=== PATIENT | male | born 1990 | race Caucasian/White ===

== ENCOUNTER 2017-03-04 21:01 | Emergency (ER) | payer SELFPAY ==
[~2017-03-04] VITALS: Ht 182.9 cm; Wt 116.4 kg
[2017-03-04] VITALS (7 sets, daily range): BP systolic 124–159; BP diastolic 73–102; PULSE 84–92; RESP 18–20; TEMP 99.4; O2SAT 97–99
--- NOTE | 2017-03-04 21:24 | PD ---
HPI Chief Complaint: Injury Time Seen by Provider: 21:11 Travel History International Travel<30 days: No Contact w/Intl Traveler<30days: No Traveled to known affect area: No History of Present Illness HPI WHILE DANCING "WILDLY" FELT A POP AND PAIN TO RIGHT SHOULDER, SEVERE PAIN WITH ANY MOVEMENT, 01/25, DENIES LOC/DECKER/CP/ABD PAIN/NUMBNESS/COLD OR PALE EXTREMITY ALL: ROBITUSSIN THOUGH CAN''T RECALL WHAT THE REACTION IS PMHX: PREVIOUS SHOULDER DISLOCATION PSHX-NONE PFSH Past Medical History ADHD: Yes Diminished Hearing: No Immunizations Current: Yes Social History Alcohol Use: Yes (OCC) Tobacco Use: No Substance Use: Yes Allergies-Medications (Allergen,Severity, Reaction): Coded Allergies: guaifenesin (Unverified Allergy, Mild, 03/04/17) Reported Meds & Prescriptions Reported Meds & Active Scripts Active No Active Prescriptions or Reported Medications Review of Systems Except as stated in HPI: all other systems reviewed are Neg Musculoskeletal: Positive: Limited ROM, Pain Physical Exam Narrative GENERAL: SKIN: Warm and dry. HEAD: Atraumatic. Normocephalic. EYES: Pupils equal and round. No scleral icterus. No injection or drainage. ENT: No nasal bleeding or discharge. Mucous membranes pink and moist. NECK: Trachea midline. No JVD. CARDIOVASCULAR: Regular rate and rhythm. RESPIRATORY: No accessory muscle use. Clear to auscultation. Breath sounds equal bilaterally. GASTROINTESTINAL: Abdomen soft, non-tender, nondistended. Hepatic and splenic margins not palpable. MUSCULOSKELETAL: Extremities without clubbing, cyanosis, or edema. RIGHT GLENOHUMERAL obvious deformity. NEUROLOGICAL: Awake and alert. No obvious cranial nerve deficits. Motor grossly within normal limits. Five out of 5 muscle strength in the arms and legs. Normal speech. PSYCHIATRIC: Appropriate mood and affect; insight and judgment normal. Data Data Last Documented VS Vital Signs Date Time Temp Pulse Resp B/P (MAP) Pulse Ox O2 Delivery O2 Flow Rate FiO2 03/04/17 21:21 97 Room Air 03/04/17 21:21 18 03/04/17 21:13 94 03/04/17 21:06 99.4 159/77 (104) Orders Orders Iv Access Insert/Monitor (03/04/17 21:16) Ecg Monitoring (03/04/17 21:16) Oxygen Administration (03/04/17 21:16) Oximetry (03/04/17 21:16) Midazolam Inj (Versed Inj) (03/04/17 21:30) Shoulder, Limited(2vws) (03/04/17 ) Shoulder, Limited(2vws) (03/04/17 ) Fentanyl Inj (Fentanyl Inj) (03/04/17 22:00) Sling And Swathe (03/04/17 ) [facility] Medical Decision Making Medical Screen Exam Complete: Yes Emergency Medical Condition: Yes Medical Record Reviewed: Yes Differential Diagnosis dislocation v fx v subluxation Narrative Course initial xray showed an anterior shoulder dislocation without fx, and post reduction showed a succesfully reduced right shoulder without any fracture either and neurovascular intact Procedures Procedure Narrative The patient was placed on a library monitor and pulse oximetry. An ambu bag and suction was immediately available at bedside. The patient was monitored by the nurse. Oxygen saturation, heart rate and blood pressure were monitored. Procedural sedation was acheived using [fentanyl and versed]. The patient was observed until awake and alert. Procedural Sedation time in attendance was [30] minutes. reduction: right arm held in adduction against chest wall, gentle external rotation applied along with countertraction, closed reduction successful and confirmed with xray. Diagnosis Primary Impression: Anterior dislocation of right shoulder Qualified Codes: S43.014A - Anterior dislocation of right humerus, initial encounter Additional Impression: s/p closed reduction Patient Instructions: General Instructions, Shoulder Dislocation (ED), Shoulder Dislocation Exercises (GEN) Scripts No Active Prescriptions or Reported Meds Disposition: 01 DISCHARGE HOME Condition: Stable Yaakov Flores MD Mar 04, 2017 21:24
[2017-03-04] MEDS ORDERED: MIDAZOLAM HCL 2 MG/2 ML VIAL IV PUSH ONE (21:30)
--- NOTE | 2017-03-04 21:43 | RADRPT ---
EXAM DATE/TIME: 03/04/2017 21:28 [facility] COMPARISON: No previous studies available for comparison. INDICATIONS : Right shoulder pain. MEDICAL HISTORY : None. SURGICAL HISTORY : None. ENCOUNTER: Initial ACUITY: 1 day PAIN SCORE: 10/10 LOCATION: Right shoulder FINDINGS: Right glenohumeral joint is anteriorly dislocated. Probably a shallow Hill-Sachs deformity of the hum eral head. No displaced fracture. Glenoid grossly intact. CONCLUSION: Anteriorly dislocated glenohumeral joint. No displaced fracture seen. King High MD on March 04, 2017 at 21:41 Board Certified Radiologist. This report was verified electronically.
--- NOTE | 2017-03-04 22:08 | RADRPT ---
EXAM DATE/TIME: 03/04/2017 21:55 [facility] COMPARISON: SHOULDER RIGHT LTD (2VWS), March 04, 2017, 21:28. INDICATIONS : Post reduction right shoulder. MEDICAL HISTORY : None. SURGICAL HISTORY : None. ENCOUNTER: Subsequent ACUITY: 1 day PAIN SCORE: 0/10 LOCATION: Right shoulder. FINDINGS: Previously seen glenohumeral joint dislocation has been reduced. Alignment is normal. No displaced fr acture seen. CONCLUSION: Interim glenohumeral joint reduction. No displaced fracture. King High MD on March 04, 2017 at 22:06 Board Certified Radiologist. This report was verified electronically.
== END 2017-03-04 23:24 | disposition home or self-care (01) ==
LOC: PHED 21:01
DX: S43.014A Anterior dislocation of right humerus, initial encounter (principal); X58.XXXA Exposure to other specified factors, initial encounter; Y93.41 Activity, dancing
CPT/HCPCS: 23650; 73030; 99152; 99285; J2250; J3010